=== PATIENT | female | born 1970 | race African-American/Black ===

== ENCOUNTER → 2020-06-13 | Outpatient (CLI) | payer OTHER ==
[~2020-06-13] MED LIST: B12 PO; CALCIUM 600 +1 EA11 PO; CARAFATE SU100 MG/ML PO; CETIRIZINE HCL10 MG PO; CETIRIZINE1 MG/1 ML PO; CLEOCIN HCL300 MG PO; COLACE 100MG C100 MG PO; CYCLOBENZAPRINE10 MG PO; CYCLOBENZAPRINE5 MG PO; FLEXERIL 10 MG10 MG PO; FLONASE 0.05% N16 GM; FUROSEMIDE10 MG/1 M2 PO; IBUPROFEN600 MG PO; IBUPROFEN800 MG PO; K-DUR TAB 10 M10 MEQ PO; K-SOL40 MEQ/15 PO; LASIX20 MG PO; LIPITOR TAB 1010 MG PO; LISINOPRIL5 MG PO; LOPRESSOR 25 MG25 MG PO; LORTAB 7.5-3251 EACH PO; LOVENOX SY40 MG/0.4 SQ; LOVENOX40 MG/0.4 SQ; MOTRIN SUS100 MG/5 M PO; MOVANTIK25 MG PO; MULTI VITAMIN PO; NEURONTIN400 MG PO; NORCO 10-325 T1 EACH PO; NORCO 7.5-3251 EACH PO; OMEPRAZOLE20 M1 PO; PERCOCET 5/325 T1 EA PO; PHENTERMINE H37.5 MG PO; SINGULAIR10 MG PO; TOPIRAMATE ER150 MG PO; TOPROL XL25 MG PO; TRAZODONE HCL50 MG PO; TRULANCE PO; VIIBRYD40 MG PO; VIT D PO; VITAMIN B12-FO1 EACH PO; VITAMIN C 500500 MG PO; VITAMIN C500 M4 PO; VITAMIN D1000 UNIT PO; VITAMIN D21250 MCG PO; VITAMIN D250000 UNIT PO; VOLTAREN100 GM TP; WELLBUTRIN XL150 MG PO; ZANTAC 150150 MG/10 PO
== END ==
LOC: KOH-I 09:30
DX: M25.572 Pain in left ankle and joints of left foot (principal); M77.32 Calcaneal spur, left foot; M19.072 Primary osteoarthritis, left ankle and foot; R60.0 Localized edema
CPT/HCPCS: 73610

== ENCOUNTER → 2020-10-17 | Outpatient (CLI) | payer OTHER | LOC: KOH-I 08:37 | DX: M25.572 Pain in left ankle and joints of left foot (principal); M79.672 Pain in left foot; M79.89 Other specified soft tissue disorders | CPT/HCPCS: 73610; 73630 ==

== ENCOUNTER → 2021-02-20 | Outpatient (CLI) | payer OTHER | LOC: KOH-I 13:39 | DX: S86.012A Strain of left Achilles tendon, initial encounter (principal) | CPT/HCPCS: 73718 ==

== ENCOUNTER → 2021-06-18 | Outpatient (CLI) | payer OTHER | LOC: KOH-I 14:34 | DX: M79.672 Pain in left foot (principal) | CPT/HCPCS: 73630 ==

== ENCOUNTER → 2021-08-13 | Outpatient (CLI) | payer OTHER ==
[~2021-08-13] MED LIST changes: +K-TAB ER20 MEQ PO; -LASIX20 MG PO; +LASIX40 MG PO; +LISINOPRIL10 MG PO; -LISINOPRIL5 MG PO; -NEURONTIN400 MG PO; +NEURONTIN600 MG PO; -OMEPRAZOLE20 M1 PO; +OMEPRAZOLE40 MG PO; +OZEMPIC1 MG/0.71 SQ; +REGLAN10 MG PO; +VITAMIN B-121000 MC3 PO; -VITAMIN D21250 MCG PO; +VITAMIN D3125 MCG PO; +VRAYLAR1.5 MG PO; +ZEBETA 5 MG TAB5 MG PO
== END ==
LOC: EXRD 15:05 → KOH-I 08-14 14:00
DX: I73.9 Peripheral vascular disease, unspecified (principal)
CPT/HCPCS: 93926

== ENCOUNTER → 2021-08-15 | Outpatient (CLI) | payer OTHER ==
[2021-08-15 09:12] LABS: HEMOGLOBIN 13.1 gm/dl (12.3-15.3); RED BLOOD COUNT 4.68 M/UL (4.00-5.10)
[2021-08-15 09:28] LABS: BUN/CREATININE RATIO 24 (0-10)
== END ==
LOC: OPSV2 08:00
PROVIDERS: Podiatrist Foot & Ankle Surgery
DX: Z01.818 Encounter for other preprocedural examination (principal); M77.32 Calcaneal spur, left foot
CPT/HCPCS: 36415; 80048; 83036; 85027

== ENCOUNTER → 2021-08-20 | Day surgery (SDC) | payer OTHER | END | disposition home or self-care (01) | LOC: OR 05:59 | DX: S92.002K Unspecified fracture of left calcaneus, subsequent encounter for fracture with nonunion (principal); G89.29 Other chronic pain; I10 Essential (primary) hypertension; E66.01 Morbid (severe) obesity due to excess calories; Z68.42 Body mass index [BMI] 45.0-49.9, adult; X58.XXXD Exposure to other specified factors, subsequent encounter; Z88.0 Allergy status to penicillin; Z88.1 Allergy status to other antibiotic agents; Z88.6 Allergy status to analgesic agent; Z88.8 Allergy status to other drugs, medicaments and biological substances; Z79.899 Other long term (current) drug therapy | CPT/HCPCS: 73650; 76000; 82962; J1100; J2001; J2250; J2405; J2704; J2795; J3010; J3370; J7030; J7120; Q4133 ==